=== PATIENT | female | born 1945 | race Caucasian/White ===

== ENCOUNTER 2024-07-04 00:47 | Inpatient (IN) ==
[2024-07-04 01:46] LABS: ABS Basophils 0.1 10^3/uL (0.0-0.1); ABS Eosinophils 0.2 10^3/uL (0.0-0.5); ABS Lymphocytes 1.3 10^3/uL (1.0-4.8); ABS Monocytes 0.5 10^3/uL (0.0-0.9); ABS Neutrophils 3.6 10^3/uL (1.5-7.6); Eosinophil % 3.8 %; Hematocrit 33.6 % (35-45); Hemoglobin 11.5 g/dL (11.5-14.3); Lymphocyte % 23.3 %; Mean Corpuscular Hemoglobin 32.2 pg (27-33); Mean Corpuscular Hgb Conc 34.3 g/dL (31-36); Mean Corpuscular Volume 93.7 fL (80-97); Mean Platelet Volume 8.3 fL (7.5-11.2); Platelet Count 200 10^3/uL (150-450); Red Blood Count 3.58 10^6/uL (3.63-4.92); Red Cell Distribution Width 14.8 % (12-17); White Blood Count 5.7 10^3/uL (3.8-11.8)
[2024-07-04 02:02] LABS: Urine Appearance Clear; Urine Bilirubin Negative (Negative); Urine Blood Trace (Negative); Urine Color Colorless; Urine Glucose Negative (Negative); Urine Ketones Negative (Negative); Urine Nitrite Negative (Negative); Urine Protein Negative (Negative); Urine Specific Gravity 1.014 (1.002-1.030); Urine Urobilinogen Negative (Negative); Urine pH 7.5 (5.0-8.0)
[2024-07-04 02:05] LABS: Activated Partial Thrombo Time 24.9 seconds (26.0-38.0); INR 0.91 (0.85-1.14)
[2024-07-04 02:15] LABS: Albumin 3.9 g/dL (3.2-5.2); Albumin/Globulin Ratio 1.3 (1-3); Calcium 8.6 mg/dL (8.6-10.3); Creatinine, Serum 1.02 mg/dL (0.51-0.95); Globulin 3.1 g/dL (2-4); HDL Cholesterol 76.1 mg/dL; Indirect Bilirubin 0.3 mg/dL (0.3-1.0); Potassium 3.6 mmol/L (3.5-5.0); Total Bilirubin 0.3 mg/dL (0.2-1.0); eGFR CKD-EPI 56.3 (>60)
[2024-07-04] MEDS ORDERED: Heparin DRIP 25,000 UNITS BAG 25,000 UNITS/250 ML BAG IV SCH (03:00)
[2024-07-04] MEDS ORDERED: Heparin 5000 UNITS/ML 1 mL VIAL IV SCH (03:00)
[2024-07-04 03:09] LABS: Urine Bacteria 1+ /HPF (Absent); Urine Red Blood Cell Trace(0-2/hpf) /HPF (0-Trace); Urine Squamous Epithelial Cell Present /HPF (Absent); Urine White Blood Cell 1+(6-10/hpf) /HPF (0-Trace)
[2024-07-04] MEDS: Iodixanol (CONTRAST) 320 MG/ML 100 ML SDV IV ONE (03:36)
[2024-07-04] MEDS: Heparin DRIP 25,000 UNITS BAG 25,000 UNITS/250 ML BAG IV SCH (04:01)
[2024-07-04 04:19] LABS: Creatinine, Serum 0.99 mg/dL (0.51-0.95); eGFR CKD-EPI 58.4 (>60)
[2024-07-04 06:47] LABS: Anion Gap 8 mmol/L (2-16); Blood Urea Nitrogen 20 mg/dL (6-24); CO2 Carbon Dioxide 29 mmol/L (22-32); Calcium 8.7 mg/dL (8.6-10.3); Chloride 99 mmol/L (101-111); Creatinine, Serum 0.82 mg/dL (0.51-0.95); Glucose 139 mg/dL (70-100); Sodium 136 mmol/L (135-145); eGFR CKD-EPI 73.2 (>60)
[2024-07-04 07:43] LABS: Potassium, Whole Blood 4.3 mmol/L (3.4-4.5)
[2024-07-04] MEDS: Heparin 5000 UNITS/ML 1 mL VIAL IV SCH (10:21)
[2024-07-04] MEDS: Ondansetron 4 mg VIAL 2 MG/ML 2 ml VIAL IV PRN (10:34)
[2024-07-05 06:22] LABS: Hematocrit 35.5 % (35-45); Hemoglobin 12.2 g/dL (11.5-14.3); Mean Corpuscular Hgb Conc 34.4 g/dL (31-36); Mean Corpuscular Volume 92.9 fL (80-97); Mean Platelet Volume 8.4 fL (7.5-11.2); Platelet Count 228 10^3/uL (150-450); Red Blood Count 3.82 10^6/uL (3.63-4.92); Red Cell Distribution Width 14.8 % (12-17); White Blood Count 7.6 10^3/uL (3.8-11.8)
[2024-07-05 06:38] LABS: Calcium 9.1 mg/dL (8.6-10.3); Creatinine, Serum 0.99 mg/dL (0.51-0.95); Potassium 3.4 mmol/L (3.5-5.0); eGFR CKD-EPI 58.4 (>60)
[2024-07-05] MEDS: Magnesium Sulfate 2 gm BAG 2 GM/50 ML BAG IVPB ONE (08:11)
[2024-07-05] MEDS: cefTRIAXone 1 gm/50 mL D5W 1 GM/50 ML BAG IV SCH (20:33)
[2024-07-06 06:02] LABS: Hematocrit 36.1 % (35-45); Hemoglobin 12.6 g/dL (11.5-14.3); Mean Corpuscular Hemoglobin 32.3 pg (27-33); Mean Corpuscular Hgb Conc 34.8 g/dL (31-36); Mean Corpuscular Volume 92.8 fL (80-97); Mean Platelet Volume 8.4 fL (7.5-11.2); Platelet Count 231 10^3/uL (150-450); Red Blood Count 3.89 10^6/uL (3.63-4.92); Red Cell Distribution Width 14.7 % (12-17); White Blood Count 7.4 10^3/uL (3.8-11.8)
[2024-07-06 07:33] LABS: Calcium 8.9 mg/dL (8.6-10.3); Creatinine, Serum 0.83 mg/dL (0.51-0.95); Magnesium 1.9 mg/dL (1.9-2.7); Potassium 3.7 mmol/L (3.5-5.0); eGFR CKD-EPI 72.1 (>60)
[2024-07-06] MEDS: Sulfur Hexaflouride MICROSPHR 25 MG VIAL IV PRN (14:55)
[2024-07-07 07:23] LABS: Hematocrit 35.9 % (35-45); Hemoglobin 12.4 g/dL (11.5-14.3); Mean Corpuscular Hemoglobin 32.1 pg (27-33); Mean Corpuscular Hgb Conc 34.5 g/dL (31-36); Mean Corpuscular Volume 93.1 fL (80-97); Mean Platelet Volume 8.6 fL (7.5-11.2); Platelet Count 237 10^3/uL (150-450); Red Blood Count 3.86 10^6/uL (3.63-4.92); Red Cell Distribution Width 14.7 % (12-17); White Blood Count 7.4 10^3/uL (3.8-11.8)
[2024-07-07 07:49] LABS: Calcium 8.8 mg/dL (8.6-10.3); Creatinine, Serum 0.73 mg/dL (0.51-0.95); Potassium 3.7 mmol/L (3.5-5.0); eGFR CKD-EPI 84.1 (>60)
[2024-07-07] MEDS: Senna TAB 8.6 mg TAB PO PRN (09:49)
[2024-07-07] MEDS: Polyethylene Glycol 3350 17 GM PACKET PO SCH (10:55)
[2024-07-08 07:45] LABS: Calcium 8.8 mg/dL (8.6-10.3); Creatinine, Serum 0.76 mg/dL (0.51-0.95); Potassium 4.1 mmol/L (3.5-5.0); eGFR CKD-EPI 80.2 (>60)
[2024-07-09 08:05] LABS: Hematocrit 37.8 % (35-45); Hemoglobin 12.9 g/dL (11.5-14.3); Mean Corpuscular Hemoglobin 32.1 pg (27-33); Mean Corpuscular Hgb Conc 34.1 g/dL (31-36); Mean Corpuscular Volume 94.1 fL (80-97); Mean Platelet Volume 8.2 fL (7.5-11.2); Platelet Count 273 10^3/uL (150-450); Red Blood Count 4.02 10^6/uL (3.63-4.92); Red Cell Distribution Width 14.4 % (12-17); White Blood Count 7.1 10^3/uL (3.8-11.8)
[2024-07-09 08:28] LABS: Calcium 8.6 mg/dL (8.6-10.3); Creatinine, Serum 0.85 mg/dL (0.51-0.95); Potassium 4.3 mmol/L (3.5-5.0); eGFR CKD-EPI 70.1 (>60)
[2024-07-10] MEDS: Polyethylene Glycol 3350 17 GM PACKET PO PRN (08:34)
[2024-07-10 16:29] LABS: Rapid COVID-19 Molecular Undetected (Undetected)
[2024-07-10] MEDS: Polyethylene Glycol 3350 17 GM PACKET PO ONE (21:28)
[2024-07-11 05:47] VITALS: BP 129/83
== END 2024-07-11 10:11 | DRG 69 ==
LOC: ED 00:47 → EDHOLD 00:47 → SUATTDRO 04:14 → MEDTELE 08:51 → SUATTDRO 07-05 12:00
PROVIDERS: ADMIT Hospitalist; ATTEND Internal Medicine